=== PATIENT | female | born 1935 | race Caucasian/White ===

== ENCOUNTER 2016-09-19 08:53 | Emergency (ER) | payer MEDICARE, OTHER ==
[2016-09-19] MEDS ORDERED: Sodium Chloride 0.9% 1,000 ML IV ONE (09:04)
[2016-09-19 09:52] LABS: CHLORIDE,CL 107 mmol/L (98-107); SODIUM,NA 141 mmol/L (136-145)
[2016-09-19 12:15] VITALS: BP 137/109
--- NOTE | 2016-09-19 16:06 | ER ---
Date of Service: 09/19/2016 SUBJECTIVE: Munira presents to emergency room with complaints of syncope. The patient was at [facility] this morning when she experienced a syncopal episode. She states that she did feel lightheaded prior to this. She does have a history of syncopal episodes in the past and had a similar event happened to her while at [facility] in 2012. During this event, she was lowered to the few and did not strike her head. The patient did not experience any chest pain or shortness of breath prior to the event. The patient states that she has not recently been ill and has not been experiencing any fever or chills. EMS did respond to the scene and did give her a fluid bolus and on arrival to the ER, she was feeling much better. PAST MEDICAL HISTORY: 1. Hypertension. 2. History of syncope. 3. Atrial fibrillation. 4. Hypothyroidism. 5. Congestive heart failure. 6. GERD. 7. Anxiety. MEDICATIONS: 1. Clonazepam. 2. Coumadin. 3. Prilosec. 4. Mycostatin. 5. Metoprolol tartrate. 6. Prinivil. 7. Synthroid. 8. Levothyroxine. 9. Digoxin. 10.Extra-strength Tylenol. ALLERGIES: Celebrex, morphine, and naproxen. REVIEW OF SYSTEMS: General: No fever or chills. HEENT: No sore throat, rhinorrhea, or congestion. Respiratory: No shortness of breath. Cardiac: Denies any substernal chest pain. Please see history of present illness. She denies any palpitations. GI: Denies any nausea, vomiting, or diarrhea. No melena, hematochezia, or hematemesis. : Denies any dysuria. Musculoskeletal: No myalgias or arthralgias. Neurologic: Please see history of present illness. PHYSICAL EXAMINATION: General: This is an 81-year-old female patient, who is in no acute distress. Vital Signs: Please see nurse's notes. She was tachycardic with a heart rate in the 120s to 130s. Skin: Warm, pale, and dry. HEENT: Head is normocephalic, atraumatic. Eyes, PERRLA. Extraocular movements are intact. Ears, TMs are clear. Mouth, oral mucosa is moist. Lungs: Clear to auscultation. Heart: Regular rate and rhythm. Abdomen: Soft, nontender. There is no hepatosplenomegaly noted. There is no masses noted. Extremities: Without edema. Neurologic: The patient is alert, oriented, and answers all questions appropriately. Her speech is fluent. Her gait is within normal limits. She has 5/5 strength in both her upper and lower extremities. Patellar and brachioradialis reflexes are 2+. She is alert to time, date, and place. DIAGNOSTIC DATA: EKG was obtained showing atrial fibrillation at a rate in the low 100s. There was no evidence of any acute ST or T-wave changes. LABORATORY DATA: WBCs 3.1, hemoglobin is 11.2, platelets are 234. PT is 19.2, INR is 1.7. Sodium is 141, potassium is 3.8, chloride is 107, bicarb is 26, BUN is 14, creatinine is 0.9. GFR is 60, glucose is 105, calcium is 8.0, corrected calcium is 8.72. Total bilirubin is 0.4, AST is 21, ALT is 26, alkaline phosphatase is 62. CK is 40. Troponin is less than 0.017. Protein is 6.0, albumin is 3.1, TSH is 1.466. EMERGENCY ROOM COURSE: The patient was given a total of approximately 1200 mils of normal saline in the emergency room. Her heart rate decreased from the 120 range down into the 80s. She reported feeling markedly improved and stated that she was no longer feeling lightheaded or weak. She continued not to experience any chest discomfort and wished to be discharged. ASSESSMENT: Syncope secondary to dehydration. PLAN: The patient will be discharged. Go home and advised her to drink plenty of fluids and have a good meal. Return to the ER if she developed any chest pain, shortness of breath, abdominal pain, lightheadedness, or symptoms of syncope. All questions were answered. MWK: 09/19/2016 11:25:12 MODL: 09/19/2016 13:09:37 /[id number]
== END 2016-09-19 10:15 | disposition home or self-care (01) ==
LOC: VM.ED 08:53 → SUPCPDRO 08:53 → VM.ED 10:15
DX: R55 Syncope and collapse (principal); I48.91 Unspecified atrial fibrillation; E03.9 Hypothyroidism, unspecified; I11.0 Hypertensive heart disease with heart failure; I50.9 Heart failure, unspecified; K21.9 Gastro-esophageal reflux disease without esophagitis; F41.9 Anxiety disorder, unspecified; Z88.8 Allergy status to other drugs, medicaments and biological substances; Z88.5 Allergy status to narcotic agent
CPT/HCPCS: 36415; 71010; 80053; 82550; 84443; 84484; 85025; 85610; 93005; 96360; 99285; J7030; 99283-GF

== ENCOUNTER 2016-12-30 10:36 | Inpatient (IN) | payer MEDICARE, OTHER ==
[2016-12-30] MEDS ORDERED: Ketorolac 15 MG/ML SDV IVPUSH ONE (11:01)
[2016-12-30] MEDS ORDERED: Sodium Chloride 0.9% 1,000 ML IV ONE (11:15)
[2016-12-30 12:02] LABS: CHLORIDE,CL 107 mmol/L (98-107); SODIUM,NA 141 mmol/L (136-145)
--- NOTE | 2016-12-30 12:02 | EDM.PDOC ---
ED HPI GENERAL MEDICAL PROBLEM - General Chief Complaint: Syncope Stated Complaint: FALLS Time Seen by Provider: 12/30/16 10:54 Source of Information: Reports: Patient, Family History Limitations: Reports: No Limitations - History of Present Illness INITIAL COMMENTS - FREE TEXT/NARRATIVE: patient fell four times during the night, up to bathroom twice to urinate, dizzy , weak. Now complaining of pain in neck, central chest with movement and palpation and left foot with movement. Onset Date: 12/29/16 Onset Time: 23:00 Duration: Hour(s):, Getting Worse Location: Reports: Neck, Chest, Lower Extremity, Left Quality: Reports: Stabbing, Throbbing Severity: Moderate Improves with: Reports: Other (not moving eases symptoms) Worsens with: Reports: Movement Associated Symptoms: Reports: Chest Pain (with movement or palpation), Syncope, Weakness, Other (palpations). Denies: Cough, cough w sputum, Diaphoresis, Fever /Chills, Headaches, Nausea/Vomiting, Shortness of Breath Middle Chest Pain Score (Numeric/FACES): 3 Left Feet Pain Score (Numeric/FACES): 5 Left Posterior Neck Pain Score (Numeric/FACES): 8 - Related Data Allergies Allergy/AdvReac Type Severity Reaction Status Date / Time celecoxib [From Celebrex] Allergy Headache Verified 12/30/16 11:42 marijuana Allergy Confusion Verified 12/30/16 11:44 metoprolol Allergy Dizziness Verified 12/30/16 11:44 morphine Allergy Redness Verified 12/30/16 11:42 naproxen [From Naprosyn] Allergy Headache Verified 12/30/16 11:42 Home Meds: Home Meds Acetaminophen [Acetaminophen Extra Strength] 1,000 mg PO Q8HR PRN 11/30/13 [ History] clonazePAM [Klonopin] 1 mg PO BEDTIME 11/30/13 [History] Aspirin [Low Dose Aspirin EC] 81 mg PO DAILY 12/30/16 [History] Diltiazem [Cardizem CD] 120 mg PO DAILY 12/30/16 [History] Heparin Sodium,Porcine/PF [Heparin IV Flush 100 Units/ml] 500 units IV ASDIRECTED 12/30/16 [History] Levothyroxine 125 mcg PO ACBREAKFAST 12/30/16 [History] Lisinopril [Prinivil] 5 mg PO DAILY 12/30/16 [History] Multivitamin [Daily Multiple Vitamin] 1 tab PO DAILY 12/30/16 [History] Triamcinolone Acetonide [Triamcinolone Acetonide 0.1% Crm] 1 applic TOP DAILY PRN 12/30/16 [History] Warfarin [Coumadin] 2.5 mg PO ASDIRECTED 12/30/16 [History] Warfarin [Coumadin] 5 mg PO ASDIRECTED 12/30/16 [History] Past Medical History HEENT History: Reports: Impaired Vision Cardiovascular History: Reports: Afib, Hypertension, Other (See Below) Other Cardiovascular History: Takes Cardizem and Coumadin Endocrine/Metabolic History: Reports: Hypothyroidism Oncologic (Cancer) History: Reports: Non-Hodgkin's Lymphoma Social & Family History - Tobacco Use Smoking Status *Q: Never Smoker Second Hand Smoke Exposure: No - Alcohol Use Days Per Week of Alcohol Use: 0 - Recreational Drug Use Recreational Drug Use: No ED ROS GENERAL - Review of Systems Review Of Systems: See Below Constitutional: Reports: Weakness, Diaphoresis. Denies: Fever, Chills HEENT: Reports: Other (dizziness at times). Denies: Vertigo, Vision Change Respiratory: Reports: No Symptoms. Denies: Shortness of Breath, Wheezing, Pleuritic Chest Pain Cardiovascular: Reports: Chest Pain (only with movement and palpation), Other ( heart pounding, palpation at times) Endocrine: Reports: No Symptoms GI/Abdominal: Reports: No Symptoms. Denies: Abdominal Pain, Black Stool, Bloody Stool, Constipation, Diarrhea : Reports: Frequency. Denies: Dysuria, Flank Pain Musculoskeletal: Reports: Neck Pain (left sided neck pain), Foot Pain (left foot pain), Other (chest wall pain with movement and palpation) Skin: Reports: Bruising Neurological: Reports: Dizziness, Syncope (patient states woke up on the floor 4 times last night), Weakness (generalized). Denies: Confusion, Headache, Trouble Speaking Psychiatric: Reports: No Symptoms - Physical Exam Exam: See Below Exam Limited By: No Limitations General Appearance: Alert, WD/WN, No Apparent Distress, Other (initially pale and clammy which improved after got to ER) Eye Exam: Bilateral Eye: EOMI, PERRL Ears: Normal External Exam, Normal Canal, Hearing Grossly Normal, Normal TMs Nose: Normal Inspection, Normal Mucosa, No Blood Throat/Mouth: Normal Inspection, Normal Lips, Normal Teeth, Normal Gums, Normal Oropharynx, Normal Voice, No Airway Compromise, Other (right lower rear molar removed three weeks ago, has small hole that looks free of infection and appears to be healing well) Head Exam: Atraumatic, Normocephalic Neck: Normal Inspection, Limited Range of Motion, Tender Lateral (left sided paraspinous muscle tendernessw) Respiratory/Chest: No Respiratory Distress, Lungs Clear, No Accessory Muscle Use , Other (chest tender with palpation, movement and deep breath in mid sternal area, non painful at rest) Cardiovascular: Normal Peripheral Pulses, Regular Rate, Rhythm, No Edema, No Gallop, No JVD, No Murmur, No Rub GI/Abdominal: Normal Bowel Sounds, Soft, Non-Tender, No Organomegaly, No Distention, No Abnormal Bruit, No Mass, Pelvis Stable (Female) Exam: Deferred, Other (bruising noted left posterior perineal/ buttock area.) Rectal (Female) Exam: Deferred Neuro Exam (Abbreviated): Alert, Oriented, CN II-XII Intact, Normal Cognition, Normal Gait, Normal Reflexes, No Motor/Sensory Deficits Back Exam: Normal Inspection, Full Range of Motion. No: CVA Tenderness (L), CVA Tenderness (R) Extremities: Normal Inspection (except for pain and brusing top of left foot at the base of toes on dorsal surface), Normal Range of Motion, Non-Tender, No Pedal Edema, Normal Capillary Refill. No: Pedal Edema Psychiatric: Normal Affect (bruises on right shoulder, several small ones on lower legs and one in left perineal/buttocks area), Normal Mood Skin Exam: Warm, Dry, Intact, Ecchymosis (bruising on right shoulder, small bruises bilat lower legs and in left perineal/buttocks area), Other Course - Vital Signs Last Recorded V/S: Last Vital Signs Temp 36.6 C 12/30/16 14:19 Pulse 76 12/30/16 14:19 Resp 18 12/30/16 14:19 BP 113/71 12/30/16 14:19 Pulse Ox 99 12/30/16 14:19 - Orders/Labs/Meds Orders: Active Orders 24 hr Category Date Time Status EKG 12 Lead [EKG Documentation Completion] [RC] STAT Care 12/30/16 10:40 Ordered Insert Leong Catheter [Insert Urinary Catheter] [OM.PC] Care 12/30/16 10:50 Ordered Q24H Urinary Catheter Assessment [RC] 08,20 Care 12/30/16 12:09 Active Cervical Spine wo Cont [CT] Stat Exams 12/30/16 10:58 Taken Chest 1V Frontal [CR] Stat Exams 12/30/16 10:57 Taken Foot 2V Lt [CR] Stat Exams 12/30/16 11:00 Taken Head wo Cont [CT] Stat Exams 12/30/16 10:57 Taken Sodium Chloride 0.9% [Saline Flush] Med 12/30/16 10:54 Active 10 ml FLUSH ASDIRECTED PRN Saline Lock Insert [OM.PC] Routine Oth 12/30/16 10:54 Ordered Medication Orders Sodium Chloride (Saline Flush) 10 ml FLUSH ASDIRECTED PRN PRN Reason: Keep Vein Open Labs: Laboratory Tests 12/30/16 12/30/16 12/30/16 Range/Units 11:00 11:25 11:25 WBC 7.0 (4.0-10.0) x10^3/uL RBC 3.58 L (4.00-5.50) x10^6/uL Hgb 11.2 L (12.0-16.0) g/dL Hct 33.4 (33.0-47.0) % MCV 93.3 H (78.0-93.0) fL MCH 31.3 (26.0-32.0) pg MCHC 33.5 (32.0-36.0) g/dL RDW Coeff of Luz 12.9 (10.0-15.0) % Plt Count 251 (130-400) x10^3/uL Neut % (Auto) 86.5 H (50.0-80.0) % Lymph % (Auto) 7.1 L (25.0-50.0) % Waldo % (Auto) 5.6 (2.0-11.0) % Eos % (Auto) 0.4 (0.0-4.0) % Baso % (Auto) 0.4 (0.2-1.2) % PT (9.8-11.8) SEC INR (2.0-3.5) Sodium 141 (136-145) mmol/L Potassium 4.2 (3.5-5.1) mmol/L Chloride 107 (98-107) mmol/L Carbon Dioxide 28 (21-32) mmol/L BUN 14 (7-18) mg/dL Creatinine 1.0 (0.55-1.02) mg/dL Est Cr Clr Drug Dosing 33.58 mL/min Estimated GFR (MDRD) 53 Glucose 138 H (74-106) mg/dL Calcium 8.4 L (8.5-10.1) mg/dL Corrected Calcium 9.12 (8.5-10.1) mg/dL Total Bilirubin 0.4 (0.2-1.0) mg/dL AST 26 (15-37) U/L ALT 26 (14-59) U/L Alkaline Phosphatase 56 (46-116) U/L Creatine Kinase 217 H* (26-192) U/L Creatine Kinase Index 11.0 H (0.0-4.0) % CK-MB (CK-2) 23.8 H (0.0-3.6) ng/mL Troponin I < 0.017 (<=0.056) ng/mL Total Protein 5.8 L (6.4-8.2) g/dL Albumin 3.1 L (3.4-5.0) g/dL Globulin 2.7 Albumin/Globulin Ratio 1.15 Urine Color Yellow (YELLOW) Urine Appearance Clear (CLEAR) Urine pH 5.5 (5.0-8.0) Ur Specific [place] 1.015 Urine Protein Trace H (NEGATIVE) mg/dL Urine Glucose (UA) Negative (NEGATIVE) mg/dL Urine Ketones Negative (NEGATIVE) mg/dL Urine Occult Blood Small H (NEGATIVE) Urine Nitrite Negative (NEGATIVE) Urine Bilirubin Negative (NEGATIVE) Urine Urobilinogen 0.2 (0.2) EU/dL Ur Leukocyte Esterase Negative (NEGATIVE) Urine RBC 5-10 H (NOT SEEN) /HPF Urine WBC 0-5 (NOT SEEN) /HPF Ur Squamous Epith Cells Few H (NEGATIVE) /HPF Urine Bacteria Few H (NEGATIVE) /HPF Hyaline Casts Few H (NEGATIVE) /HPF Urine Mucus Few H (NEGATIVE) /LPF 12/30/16 Range/Units 11:25 WBC (4.0-10.0) x10^3/uL RBC (4.00-5.50) x10^6/uL Hgb (12.0-16.0) g/dL Hct (33.0-47.0) % MCV (78.0-93.0) fL MCH (26.0-32.0) pg MCHC (32.0-36.0) g/dL RDW Coeff of Luz (10.0-15.0) % Plt Count (130-400) x10^3/uL Neut % (Auto) (50.0-80.0) % Lymph % (Auto) (25.0-50.0) % Waldo % (Auto) (2.0-11.0) % Eos % (Auto) (0.0-4.0) % Baso % (Auto) (0.2-1.2) % PT 31.4 H D (9.8-11.8) SEC INR 3.0 (2.0-3.5) Sodium (136-145) mmol/L Potassium (3.5-5.1) mmol/L Chloride (98-107) mmol/L Carbon Dioxide (21-32) mmol/L BUN (7-18) mg/dL Creatinine (0.55-1.02) mg/dL Est Cr Clr Drug Dosing mL/min Estimated GFR (MDRD) Glucose (74-106) mg/dL Calcium (8.5-10.1) mg/dL Corrected Calcium (8.5-10.1) mg/dL Total Bilirubin (0.2-1.0) mg/dL AST (15-37) U/L ALT (14-59) U/L Alkaline Phosphatase (46-116) U/L Creatine Kinase (26-192) U/L Creatine Kinase Index (0.0-4.0) % CK-MB (CK-2) (0.0-3.6) ng/mL Troponin I (<=0.056) ng/mL Total Protein (6.4-8.2) g/dL Albumin (3.4-5.0) g/dL Globulin Albumin/Globulin Ratio Urine Color (YELLOW) Urine Appearance (CLEAR) Urine pH (5.0-8.0) Ur Specific [place] Urine Protein (NEGATIVE) mg/dL Urine Glucose (UA) (NEGATIVE) mg/dL Urine Ketones (NEGATIVE) mg/dL Urine Occult Blood (NEGATIVE) Urine Nitrite (NEGATIVE) Urine Bilirubin (NEGATIVE) Urine Urobilinogen (0.2) EU/dL Ur Leukocyte Esterase (NEGATIVE) Urine RBC (NOT SEEN) /HPF Urine WBC (NOT SEEN) /HPF Ur Squamous Epith Cells (NEGATIVE) /HPF Urine Bacteria (NEGATIVE) /HPF Hyaline Casts (NEGATIVE) /HPF Urine Mucus (NEGATIVE) /LPF Meds: Medications Generic Name Dose Route Start Last Admin Trade Name Freq PRN Reason Stop Dose Admin Sodium Chloride 10 ml 12/30/16 10:54 Saline Flush FLUSH ASDIRECTED PRN Keep Vein Open Discontinued Medications Generic Name Dose Route Start Last Admin Trade Name Freq PRN Reason Stop Dose Admin Sodium Chloride 1,000 mls @ 999 mls/hr 12/30/16 11:15 12/30/16 11:05 Normal Saline IV 12/30/16 12:15 999 mls/hr ONETIME ONE Administration Ketorolac Tromethamine 15 mg 12/30/16 11:01 12/30/16 11:10 Toradol IVPUSH 12/30/16 11:02 15 mg ONETIME ONE Administration - Radiology Interpretation Free Text/Narrative:: Xray left foot showed fractures of left second through 5 metatarsals. CXR showed no acute process. CT Results Date: 12/30/16 (CT of head showed no acute intracranial process. CT of neck showed fracture involving superior endplate, unsure if old or new. Radiologist thought maybe old. However pain at the site is new since her fall.) CT Results Time: 13:00 - Re-Assessments/Exams Free Text/Narrative Re-Assessment/Exam: 12/30/16 15:[address] Saldaña. We agree that admission is warranted. Family and patient are agreeable to this plan. Departure - Departure Time of Disposition: 14:20 Disposition: Admitted As Inpatient 64 Condition: Good Clinical Impression: PAF (paroxysmal atrial fibrillation) Syncope Qualifiers: Syncope type: unspecified Qualified Code(s): R55 - Syncope and collapse Vertebral fracture, closed Qualifiers: Encounter type: initial encounter Fracture of vertebra location: thoracic Thoracic vertebra fracture level: T1 Fracture morphology: unspecified fracture morphology Qualified Code(s): S22.019A - Unspecified fracture of first thoracic vertebra, initial encounter for closed fracture Fracture of foot Qualifiers: Encounter type: initial encounter Fracture type: closed Laterality: left Qualified Code(s): S92.902A - Unspecified fracture of left foot, initial encounter for closed fracture - Discharge Information - My Orders Last 24 Hours: My Active Orders 12/30/16 10:40 EKG 12 Lead [EKG Documentation Completion] [RC] STAT 12/30/16 10:50 Insert Leong Catheter [Insert Urinary Catheter] [OM.PC] Q24H 12/30/16 10:54 Sodium Chloride 0.9% [Saline Flush] 10 ml FLUSH ASDIRECTED PRN Saline Lock Insert [OM.PC] Routine 12/30/16 10:57 Chest 1V Frontal [CR] Stat Head wo Cont [CT] Stat 12/30/16 10:58 Cervical Spine wo Cont [CT] Stat 12/30/16 11:00 Foot 2V Lt [CR] Stat 12/30/16 12:09 Urinary Catheter Assessment [RC] 08,20 - Assessment/Plan Last 24 Hours: My Active Orders 12/30/16 10:40 EKG 12 Lead [EKG Documentation Completion] [RC] STAT 12/30/16 10:50 Insert Leong Catheter [Insert Urinary Catheter] [OM.PC] Q24H 12/30/16 10:54 Sodium Chloride 0.9% [Saline Flush] 10 ml FLUSH ASDIRECTED PRN Saline Lock Insert [OM.PC] Routine 12/30/16 10:57 Chest 1V Frontal [CR] Stat Head wo Cont [CT] Stat 12/30/16 10:58 Cervical Spine wo Cont [CT] Stat 12/30/16 11:00 Foot 2V Lt [CR] Stat 12/30/16 12:09 Urinary Catheter Assessment [RC] 08,20
[2016-12-30] MEDS: Sodium Chloride 0.9% 1,000 ML IV SCH (17:30)
[2016-12-30] MEDS: Melatonin 3 MG Tab PO SCH ×2 (17:56→21:43)
[2016-12-30] MEDS: Diltiazem 120 MG Cap.CD PO SCH (18:11)
[2016-12-30] MEDS: Lisinopril 5 MG Tab PO SCH (18:11)
[2016-12-30] MEDS: Aspirin 81 MG Tab.EC PO SCH (18:11)
[2016-12-30] MEDS: Acetaminophen 500 MG Tab PO PRN (18:12)
[2016-12-30] MEDS ORDERED: Warfarin 5 MG Tab PO SCH (20:00)
--- NOTE | 2016-12-30 21:22 | HP ---
REASON FOR ADMISSION: Syncopal episodes. HISTORY OF PRESENT ILLNESS: This is an 81-year-old white female, brought into the emergency room today because of multiple episodes of passing out and falling last night and early this morning. She had had about 4 episodes where she had gotten up to go to the bathroom, fell in the bathroom, and fell on the way back to the bedroom. She felt like she had some funny feeling in her head at this time. She did not recall any chest pain or palpitations at that time. She gets up about 2 to 5 times a night to urinate. She has done this for the past 3 years following her Whipple procedure surgery. She denied any spinning sensation. She has had no recent illness. No fever or chills. No cough. She does feel cold. She has had no nausea or vomiting. Occasional diarrhea. She had been eating okay, taking plenty of fluids according to her report. PAST MEDICAL HISTORY: 1. Pancreatic cancer, diagnosed about 3 years ago. She underwent a Whipple procedure on 11/02/2013. She has had chemotherapy and radiation therapy to the lung for this also followed by Dr. Hussein at [facility]. 2. She had a recent molar tooth extracted about 3 weeks ago. 3. She has had a history of syncope over the past year or so. She has passed out a couple 2 to 3 times at [facility], gets dizzy. Additional past medical history on review from my chart, which they shared with me. 1. Paroxysmal atrial fibrillation. 2. Paroxysmal SVT. 3. Diastolic dysfunction. 4. Vertigo. 5. Hypertension. MEDICATIONS: 1. Clonazepam 1 mg at bedtime since her Whipple procedure in 2013. 2. Coumadin as directed because of her paroxysmal atrial fibrillation. 3. Triamcinolone cream b.i.d. p.r.n. 4. Multivitamin daily. 5. Lisinopril 5 mg daily. 6. Levothyroxine 125 mcg daily. 7. Heparin flush for her port. 8. Diltiazem 120 mg daily. 9. Aspirin 81 mg daily. 10.Tylenol 1000 mg q.8 hours p.r.n. ALLERGIES AND SENSITIVITIES: Celebrex, marijuana, metoprolol, morphine, and naproxen. SOCIAL HISTORY: She currently lives alone in the [address]. Has been there about 2 months. REVIEW OF SYSTEMS: Unremarkable except as already noted in the HPI. OBJECTIVE: General: She is alert. Vital Signs: She is afebrile, pulse is 71 and regular, blood pressure is 135/59, respirations are 20, and O2 saturations are 98% on room air. Orthostatic blood pressures were abnormal, sitting it was 143/69, standing it dropped to 118/70. HEENT: Pupils unremarkable. TMs negative. Throat clear. Neck: Supple. No adenopathy noted. Heart: Regular rate and rhythm. No murmur noted. Lungs: Clear to auscultation. She has a port in the right upper chest. Abdomen: Soft. Prior surgical scars noted. No masses palpable. No hepatosplenomegaly noted. Extremities: Warm and dry. No edema. She moves all 4 extremities. Sensation is intact. She has some tenderness at the dorsal aspect of the left foot. Also some tenderness in the mid to upper thorax. LABORATORY DATA: White count is 7 and hemoglobin 11.2. INR 3. Electrolytes are normal with a creatinine of 1.0. Glucose is 138. LFTs are normal. CK is elevated at 217. Troponin is negative. Albumin 3.1. Urinalysis also unremarkable. IMAGING: X-rays of the left foot shows fractures at the distal aspects of the third, fourth, and fifth metatarsals. Chest x-ray was unremarkable. Head CT was unremarkable by report. CT of the cervical spine has apparent T1 compression fracture, undetermined age. EKG shows normal sinus rhythm, no acute changes, rate of 70. ASSESSMENT: 1. Multiple syncopal episodes, etiology undetermined. 2. History of paroxysmal atrial fibrillation. 3. History of paroxysmal supraventricular tachycardia. 4. History of pancreatic cancer, status post Whipple procedure. 5. Suspect dehydration based on the orthostatic blood pressure changes. 6. Fracture of the second through fifth metatarsals of the left foot. 7. Evidence of compression fracture, T1, age undetermined. PLAN: 1. The patient will be admitted to acute care status for monitoring of her condition. Placed on a galley boy. We will give her some IV fluids. Repeat labs in the morning. Discontinue her Klonopin in case that is contributing to her syncope, replace with melatonin. 2. Physical Therapy consult for evaluation and treatment on Sunday. 3. Social Service consult on Sunday also to discuss if she is able to live alone. The patient may require a stay in [facility] following her acute care stay for rehabilitation purposes. 4. She requests a code 3 DNR/DNI status. The patient's local provider is [facility]. She will need to have a primary physician provider on Sunday. Family is considering and will let me know. FM: 12/30/2016 17:36:01 MODL: 12/30/2016 20:09:40 /[id number]
[2016-12-31] MEDS: Acetaminophen 500 MG Tab PO PRN ×2 (01:15→22:32)
[2016-12-31] MEDS: Sodium Chloride 0.9% 1,000 ML IV SCH (01:16)
[2016-12-31] MEDS: Ibuprofen 200 MG Tab PO PRN ×3 (03:49→19:33)
[2016-12-31] MEDS: Levothyroxine 125 MCG Tab PO SCH (06:06)
[2016-12-31] MEDS: Lisinopril 5 MG Tab PO SCH (07:49)
[2016-12-31] MEDS: Aspirin 81 MG Tab.EC PO SCH (07:49)
[2016-12-31] MEDS: Diltiazem 120 MG Cap.CD PO SCH (07:49)
[2016-12-31] MEDS: Multivitamins with Iron/Calcium/Folic Acid/Minerals Tab PO SCH (07:49)
[2016-12-31 08:37] LABS: CHLORIDE,CL 109 mmol/L (98-107); SODIUM,NA 140 mmol/L (136-145)
--- NOTE | 2016-12-31 13:37 | PN ---
Progress Note for JENNI CASTANON Date: 12/31/2016 Room #: VM.202 SUBJECTIVE: An 81-year-old white female, admitted yesterday with multiple syncopal episodes of undetermined etiology. She sustained metatarsal fractures on the left foot and potential new T1 compression fracture. She is also noted to be mildly dehydrated with positive orthostatic blood pressure changes. She has done well overnight, has not been dizzy or lightheaded. She does complains of chest discomfort that seems to be chest wall discomfort and she is tender in the chest wall and subsequent to back. Pain was improved with ibuprofen given overnight. Her sleep was fair. She tolerates the melatonin. I discontinued the Klonopin due to risks of dizziness from this and possibly contributing to her syncopal episodes. OBJECTIVE: General: She is alert. Vital Signs: She is afebrile, blood pressure is 128/58, pulse 54, O2 sats 98% on room air, respirations are 16. Heart: Regular rate and rhythm. Lungs: Clear to auscultation. Abdomen: Benign. Extremities: Warm and dry. No edema. Telemetry was pretty much stable now except that she did have a short run of bigeminy without symptoms. LABORATORIES: Today, white count 4.1, hemoglobin is 9.4, decreased from 11.2, possibly due to dilution. INR is up to 3.8. Electrolytes are normal. Creatinine 0.8. CK is normal at 140 this morning. Troponin is negative. ASSESSMENT: 1. Multiple syncopal episodes. 2. Short run of bigeminy. 3. History of paroxysmal atrial fibrillation. 4. History of paroxysmal supraventricular tachycardia. 5. Mild dehydration-resolved. 6. Fracture of 3rd, 4th, and 5th metatarsals of the left foot. PLAN: We will continue to monitor the patient's status. Continue cardiac monitoring. Saline lock her IV. She is scheduled for physical therapy evaluation tomorrow. Social Service evaluation tomorrow. She is requesting Dr. Carissa Girard to be her provider while she is in the hospital. FM: 12/31/2016 12:52:28 MODL: 12/31/2016 13:31:40 /[id number]
[2016-12-31] MEDS: Melatonin 3 MG Tab PO SCH (19:33)
[2017-01-01] MEDS: Ibuprofen 200 MG Tab PO PRN ×3 (02:25→20:12)
[2017-01-01] MEDS: Levothyroxine 125 MCG Tab PO SCH (06:06)
[2017-01-01] MEDS: Multivitamins with Iron/Calcium/Folic Acid/Minerals Tab PO SCH (07:34)
[2017-01-01] MEDS: Aspirin 81 MG Tab.EC PO SCH (07:35)
[2017-01-01] MEDS: Diltiazem 120 MG Cap.CD PO SCH (07:35)
[2017-01-01] MEDS: Lisinopril 5 MG Tab PO SCH (07:35)
[2017-01-01] MEDS: Sodium Chloride 0.9% 10 ML Syringe FLUSH PRN ×2 (07:36→20:21)
[2017-01-01 08:30] LABS: CHLORIDE,CL 109 mmol/L (98-107); SODIUM,NA 143 mmol/L (136-145)
--- NOTE | 2017-01-01 08:41 | PCM.PN ---
- General Info Date of Service: 01/01/17 Subjective Update: Patient has not been sleeping well secondary to pain in her chest, back, and neck. She denies any worsening of the pain and has had all of these since she first got admitted. Her foot does not bother her at rest but she has significant pain whenever she tries to bear weight. - Review of Systems General: Reports: No Symptoms HEENT: Reports: No Symptoms Pulmonary: Reports: No Symptoms Cardiovascular: Reports: Chest Pain. Denies: Edema, Lightheadedness Gastrointestinal: Reports: No Symptoms Genitourinary: Reports: No Symptoms Musculoskeletal: Reports: Neck Pain, Back Pain, Foot Pain Skin: Reports: No Symptoms Neurological: Reports: No Symptoms - Patient Data Vitals - Most Recent: Last Vital Signs Temp 36.6 C 01/01/17 06:00 Pulse 62 01/01/17 07:35 Resp 18 01/01/17 06:00 BP 156/56 H 01/01/17 07:35 Pulse Ox 99 01/01/17 06:00 Weight - Most Recent: 48.897 kg I&O - Last 24 Hours: Intake & Output 12/31/16 01/01/17 01/01/17 22:59 06:59 14:59 Intake Total 350 250 200 Output Total 800 3250 Balance -450 -3000 200 Lab Results Last 24 Hours: Laboratory Results - last 24 hr 12/31/16 01/01/17 01/01/17 Range/Units 07:45 06:28 06:28 WBC 4.8 (4.0-10.0) x10^3/uL RBC 3.06 L (4.00-5.50) x10^6/uL Hgb 9.8 L (12.0-16.0) g/dL Hct 28.4 L (33.0-47.0) % MCV 92.8 (78.0-93.0) fL MCH 32.0 (26.0-32.0) pg MCHC 34.5 (32.0-36.0) g/dL RDW Coeff of Luz 12.6 (10.0-15.0) % Plt Count 218 (130-400) x10^3/uL Neut % (Auto) 76.6 (50.0-80.0) % Lymph % (Auto) 12.2 L (25.0-50.0) % [place] % (Auto) 9.3 (2.0-11.0) % Eos % (Auto) 1.7 (0.0-4.0) % Baso % (Auto) 0.2 (0.2-1.2) % PT 29.2 H (9.8-11.8) SEC INR 2.8 (2.0-3.5) Sodium 140 (136-145) mmol/L Potassium 4.0 (3.5-5.1) mmol/L Chloride 109 H (98-107) mmol/L Carbon Dioxide 23 (21-32) mmol/L BUN 13 (7-18) mg/dL Creatinine 0.8 (0.55-1.02) mg/dL Est Cr Clr Drug Dosing 41.13 mL/min Estimated GFR (MDRD) > 60 Glucose 94 (74-106) mg/dL Calcium 7.9 L (8.5-10.1) mg/dL Creatine Kinase 140 (26-192) U/L Creatine Kinase Index 4.1 H (0.0-4.0) % CK-MB (CK-2) 5.8 H (0.0-3.6) ng/mL Troponin I < 0.017 (<=0.056) ng/mL Med Orders - Current: Current Medications Acetaminophen (Tylenol Extra Strength) 1,000 mg PO Q8HR PRN PRN Reason: Pain Last Admin: 12/31/16 22:32 Dose: 1,000 mg Aspirin (Halfprin) 81 mg PO DAILY [facility] Last Admin: 01/01/17 07:35 Dose: 81 mg Diltiazem HCl (Cardizem Cd) 120 mg PO DAILY [facility] Last Admin: 01/01/17 07:35 Dose: 120 mg Heparin Sodium (Porcine) (Heparin Lock Flush 100 Units/Ml) 500 units IVPUSH Q30D [facility] Sodium Chloride (Normal Saline) 1,000 mls @ 125 mls/hr IV ASDIRECTED [facility] Last Admin: 12/31/16 01:16 Dose: 125 mls/hr Ibuprofen (Motrin) 600 mg PO TID PRN PRN Reason: Pain/Fever Last Admin: 01/01/17 02:25 Dose: 600 mg Levothyroxine Sodium (Levothyroxine) 125 mcg PO ACBREAKFAST [facility] Last Admin: 01/01/17 06:06 Dose: 125 mcg Lisinopril (Prinivil) 5 mg PO DAILY [facility] Last Admin: 01/01/17 07:35 Dose: 5 mg Melatonin (Melatonin) 6 mg PO BEDTIME [facility] Last Admin: 12/31/16 19:33 Dose: 6 mg Multivitamins/Minerals (Thera M Plus) 1 tab PO DAILY [facility] Last Admin: 01/01/17 07:34 Dose: 1 tab Sodium Chloride (Saline Flush) 10 ml FLUSH ASDIRECTED PRN PRN Reason: Keep Vein Open Last Admin: 01/01/17 07:36 Dose: 10 ml Warfarin Sodium (Coumadin) 2.5 mg PO [email or web address] [facility] Last Admin: 12/30/16 21:41 Dose: 2.5 mg Warfarin Sodium (Coumadin) 5 mg PO [email or web address] [facility] Discontinued Medications Sodium Chloride (Normal Saline) 1,000 mls @ 999 mls/hr IV ONETIME ONE Stop: 12/30/16 12:15 Last Admin: 12/30/16 11:05 Dose: 999 mls/hr Ketorolac Tromethamine (Toradol) 15 mg IVPUSH ONETIME ONE Stop: 12/30/16 11:02 Last Admin: 12/30/16 11:10 Dose: 15 mg - Exam General: Alert, Oriented, Cooperative, No Acute Distress HEENT: Pupils Equal, Pupils Reactive, Mucous Membr. Moist/[place] Neck: Supple, Trachea Midline, No Thyromegaly. No: Lymphadenopathy Lungs: Clear to Auscultation, Normal Respiratory Effort Cardiovascular: Regular Rate, Regular Rhythm GI/Abdominal Exam: Normal Bowel Sounds, Soft, Non-Tender, No Organomegaly, No Distention, No Mass Extremities: Normal Inspection, No Pedal Edema, Normal Capillary Refill, Other ( tenderness to palpation over the proximal metatarsals) Skin: Warm, Dry, Intact - Problem List & Annotations (1) Syncope SNOMED Code(s): 328539535 Code(s): R55 - SYNCOPE AND COLLAPSE Status: Acute Current Visit: Yes Qualifiers: Syncope type: unspecified Qualified Code(s): R55 - Syncope and collapse Annotation/Comment:: - Etiology for syncope remains unclear. Presumed to be episode of either paroxysmal atrial fibrillation or SVT; nothing has been captured on the monitor. - No significant findings on telemetry; troponin negative x 2; other labs overall good; CT head negative. - Hgb did drop 2 points over the first day of admission but is stable now today. - Patient had an Echo about 1 year ago that was essentially unremarkable. - May need consult with cardiology as an outpatient but no further work-up is indicated inpatient. (2) PAF (paroxysmal atrial fibrillation) SNOMED Code(s): 711365549 Code(s): I48.0 - PAROXYSMAL ATRIAL FIBRILLATION Status: Chronic Current Visit: Yes Annotation/Comment:: - Rates have been controlled. - INR within range today. - Diltiazem and warfarin per home dosing. (3) Paroxysmal supraventricular tachycardia SNOMED Code(s): 27531676 Code(s): I47.1 - SUPRAVENTRICULAR TACHYCARDIA Status: Chronic Current Visit: Yes Annotation/Comment:: - None during admission. - Patient will remain on telemetry until tomorrow. (4) Anemia SNOMED Code(s): 097084997 Code(s): D64.9 - ANEMIA, UNSPECIFIED Status: Acute Current Visit: Yes Qualifiers: Anemia type: unspecified type Qualified Code(s): D64.9 - Anemia, unspecified Annotation/Comment:: - Hgb is usually normal and was down on admission with further decrease. Stable today. - Will have nursing do an occult blood on her next stool. - Otherwise, will monitor daily and do iron studies tomorrow as well. - Next steps depend on above results. (5) Hypertension SNOMED Code(s): 19657364 Code(s): I10 - ESSENTIAL (PRIMARY) HYPERTENSION Status: Chronic Current Visit: Yes Qualifiers: Hypertension type: essential hypertension Qualified Code(s): I10 - Essential (primary) hypertension Annotation/Comment:: - BP borderline. - No changes to medications at this time. - Will continue to monitor and adjust if persistently >150 systolic. (6) Fracture of foot SNOMED Code(s): 41627863 Code(s): S92.909A - UNSP FRACTURE OF UNSP FOOT, INIT ENCNTR FOR CLOSED FRACTURE Status: Acute Current Visit: Yes Qualifiers: Encounter type: initial encounter Fracture type: closed Laterality: left Qualified Code(s): S92.902A - Unspecified fracture of left foot, initial encounter for closed fracture Annotation/Comment:: - PT to get appropriate stabilizing footwear (post-op shoe vs. CAM boot). - Continue tylenol for pain. - Patient is WBAT. (7) Vertebral fracture, closed Status: Acute Current Visit: Yes Qualifiers: Encounter type: initial encounter Fracture of vertebra location: thoracic Thoracic vertebra fracture level: T1 Fracture morphology: unspecified fracture morphology Qualified Code(s): S22.019A - Unspecified fracture of first thoracic vertebra, initial encounter for closed fracture Annotation/Comment:: - Given she has pain at the site of the visualized compression fracture, would consider this acute rather than chronic. - This is a stable fracture. - Problem List Review Problem List Initiated/Reviewed/Updated: Yes - My Orders Last 24 Hours: My Active Orders 01/01/17 06:28 BASIC METABOLIC PANEL,BMP [CHEM] Routine - Assessment Assessment:: 81 yo female admitted with injuries from a fall caused by a syncopal episode. She has multiple aches and pains related to the fall but these are stable. No new symptoms and no syncopal events since admission. - Plan Plan:: See details under problems above. PT to evaluate the patient today. Anticipate she will require swing bed cares before returning home but we will await their assessment. She will remain on acute status today. She does not require VTE prophylaxis as she is therapeutically anticoagulated on warfarin. She is DNR/ DNI per discussions on admission. Will restart her clonazepam at lower doses as she will likely need to be tapered off of this given buttermaker use. Anticipate she will be medically ready to transition to swing bed tomorrow if PT is going to pick her up.
[2017-01-01] MEDS: Acetaminophen 500 MG Tab PO PRN (18:24)
[2017-01-01] MEDS ORDERED: ClonazePAM 0.5 MG Tab PO SCH (20:00)
[2017-01-01] MEDS ORDERED: Warfarin 5 MG Tab PO SCH (20:00)
[2017-01-01] MEDS: Melatonin 3 MG Tab PO SCH (20:14)
[2017-01-02] MEDS: Acetaminophen 500 MG Tab PO PRN (03:18)
[2017-01-02] MEDS: Levothyroxine 125 MCG Tab PO SCH (06:28)
[2017-01-02] MEDS: Aspirin 81 MG Tab.EC PO SCH (07:28)
[2017-01-02] MEDS: Lisinopril 5 MG Tab PO SCH (07:28)
[2017-01-02] MEDS: Diltiazem 120 MG Cap.CD PO SCH (07:28)
[2017-01-02] MEDS: Multivitamins with Iron/Calcium/Folic Acid/Minerals Tab PO SCH (07:28)
[2017-01-02] MEDS: Sodium Chloride 0.9% 10 ML Syringe FLUSH PRN (07:36)
--- NOTE | 2017-01-02 08:48 | PCM.DCSUM1 ---
Discharge Summary - Hospital Course Brief History: Mrs. Lo is an 81 yo female admitted following multiple syncopal events occurring within a 24 hour period. She did sustain fractures of her left 3rd-5th metatarsals during one of the falls. - Discharge Data Discharge Date: 01/02/17 Discharge Disposition: Home, [facility] 06 Condition: Good - Discharge Diagnosis/Problem(s) (1) Syncope SNOMED Code(s): 349689602 ICD Code: R55 - SYNCOPE AND COLLAPSE Status: Acute Current Visit: Yes Problem Details: As above, patient was admitted following repeated syncopal events. Labs have been unremarkable apart from her hemoglobin being lower than usual but stable. EKG and telemetry were essentially unrevealing. She did have 1 episode of bigeminy but was asymptomatic with that. Her last Echo was done around 1 year ago and basically unremarkable. Therefore, the etiology for her syncope remains unclear but is presumed to be episodes of either paroxysmal atrial fibrillation or SVT. 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 Qualifiers: Syncope type: unspecified Qualified Code(s): R55 - Syncope and collapse (2) PAF (paroxysmal atrial fibrillation) SNOMED Code(s): 793732713 ICD Code: I48.0 - PAROXYSMAL ATRIAL FIBRILLATION Status: Chronic Current Visit: Yes Problem Details: Rates have been controlled. INR at goal yesterday. Result will be called to [facility]. Her diltiazem and warfarin were continued per home dosing. (3) Paroxysmal supraventricular tachycardia SNOMED Code(s): 33054819 ICD Code: I47.1 - SUPRAVENTRICULAR TACHYCARDIA Status: Chronic Current Visit: Yes Problem Details: She had no episodes of this captured during her admission. (4) Anemia SNOMED Code(s): 670136019 ICD Code: D64.9 - ANEMIA, UNSPECIFIED Status: Acute Current Visit: Yes Problem Details: Hemoglobin is usually normal and was down on admission with further decrease the following day. Recheck yesterday was stable. Patient never had a BM to do the occult blood on. Since it has stabilized, will defer further work-up to the outpatient setting. Qualifiers: Anemia type: unspecified type Qualified Code(s): D64.9 - Anemia, unspecified (5) Hypertension SNOMED Code(s): 63131356 ICD Code: I10 - ESSENTIAL (PRIMARY) HYPERTENSION Status: Chronic Current Visit: Yes Problem Details: BP has been borderline elevated during her hospitalization but is better today after she got some sleep last night. No changes were made to her medications. Qualifiers: Hypertension type: essential hypertension Qualified Code(s): I10 - Essential (primary) hypertension (6) Fracture of foot SNOMED Code(s): 19979723 ICD Code: S92.909A - UNSP FRACTURE OF UNSP FOOT, INIT ENCNTR FOR CLOSED FRACTURE Status: Acute Current Visit: Yes Problem Details: Physical therapy was able to work with her to get a post-op shoe, which is working well for her. Her pain is now controlled with tylenol and she has been able to weight bear as tolerated. Qualifiers: Encounter type: initial encounter Fracture type: closed Laterality: left Qualified Code(s): S92.902A - Unspecified fracture of left foot, initial encounter for closed fracture (7) Vertebral fracture, closed Status: Acute Current Visit: Yes Problem Details: Given she has pain at the site of the visualized compression fracture, would consider this acute rather than chronic. This is a stable fracture and does not require further specific cares. Qualifiers: Encounter type: initial encounter Fracture of vertebra location: thoracic Thoracic vertebra fracture level: T1 Fracture morphology: unspecified fracture morphology Qualified Code(s): S22.019A - Unspecified fracture of first thoracic vertebra, initial encounter for closed fracture - Patient Summary/Data Operative Procedure(s) Performed: none Complications: none Consults: Consultations 12/30/16 17:14 PT Evaluation and Treatment [CONS] Routine 12/30/16 17:15 Consult to Laundry Or Dry Cleaners Counter Clerk [CONS] Routine Labs Pending at D/C: none Recommended Follow-up Testing/Procedures: further work-up of her anemia Planned Operative Procedure(s) after DC: none Hospital Course: See details as above. The patient's syncope was worked up without identification of an obvious cause. PT was able to see her yesterday and felt she could go home with home health. She is advised not to drive herself until she has been episode free for 3 months, sooner if ok'd by cardiology. Otherwise , her hospitalization was uncomplicated. The only medication change made was to decrease her clonazepam to 0.5 mg. HOME HEALTH CERTIFICATION: Patient was seen [id number] for the reasons pertaining to the need for home health (syncope, left metatarsal fractures) on 01/02/17. She is homebound as she needs the assistance of a walker and another individual to leave the home. She will require PT and OT for strengthening and ADL's and detention for medication instruction and vital sign monitoring. I will follow her home health plan of care. - Patient Instructions Diet: Usual Diet as Tolerated Activity: As Tolerated Driving: Do Not Drive Showering/Bathing: May Shower - Discharge Plan Home Medications: Home Meds Acetaminophen [Acetaminophen Extra Strength] 1,000 mg PO Q8HR PRN 11/30/13 [ History] Aspirin [Low Dose Aspirin EC] 81 mg PO DAILY 12/30/16 [History] Diltiazem [Cardizem CD] 120 mg PO DAILY 12/30/16 [History] Heparin Sodium,Porcine/PF [Heparin IV Flush 100 Units/ml] 500 units IV ASDIRECTED 12/30/16 [History] Levothyroxine 125 mcg PO ACBREAKFAST 12/30/16 [History] Lisinopril [Prinivil] 5 mg PO DAILY 12/30/16 [History] Multivitamin [Daily Multiple Vitamin] 1 tab PO DAILY 12/30/16 [History] Triamcinolone Acetonide [Triamcinolone Acetonide 0.1% Crm] 1 applic TOP BID PRN 12/30/16 [History] Warfarin [Coumadin] 2.5 mg PO ASDIRECTED 12/30/16 [History] Warfarin [Coumadin] 5 mg PO ASDIRECTED 12/30/16 [History] ClonazePAM [KlonoPIN] 0.5 mg PO BEDTIME tablet 01/02/17 [Rx] Forms: ED Department Discharge Referrals: Jigna Helm PA-C [Primary Care Provider] - - Discharge Summary/Plan Comment DC Time >30 min.: No - General Info Date of Service: 01/02/17 Subjective Update: Doing much better today. Slept well last night. Pain is doing much better this morning as well. No new complaints. - Review of Systems General: Reports: No Symptoms HEENT: Reports: No Symptoms Pulmonary: Reports: No Symptoms Cardiovascular: Reports: No Symptoms Gastrointestinal: Reports: No Symptoms Genitourinary: Reports: No Symptoms Musculoskeletal: Reports: No Symptoms Skin: Reports: No Symptoms - Patient Data Vitals - Most Recent: Last Vital Signs Temp 36.5 C 01/02/17 05:57 Pulse 54 L 01/02/17 07:28 Resp 16 01/02/17 05:57 BP 147/61 H 01/02/17 07:28 Pulse Ox 97 01/02/17 05:57 Weight - Most Recent: 48.897 kg I&O - Last 24 hours: Intake & Output 01/01/17 01/02/17 01/02/17 22:59 06:59 14:59 Intake Total 940 300 Output Total 350 1250 300 Balance 590 -1250 0 Med Orders - Current: Current Medications Acetaminophen (Tylenol Extra Strength) 1,000 mg PO Q8HR PRN PRN Reason: Pain Last Admin: 01/02/17 03:18 Dose: 1,000 mg Aspirin (Halfprin) 81 mg PO DAILY [facility] Last Admin: 01/02/17 07:28 Dose: 81 mg Clonazepam (Klonopin) 0.5 mg PO BEDTIME [facility] Last Admin: 01/01/17 20:14 Dose: 0.5 mg Diltiazem HCl (Cardizem Cd) 120 mg PO DAILY [facility] Last Admin: 01/02/17 07:28 Dose: 120 mg Heparin Sodium (Porcine) (Heparin Lock Flush 100 Units/Ml) 500 units IVPUSH Q30D [facility] Sodium Chloride (Normal Saline) 1,000 mls @ 125 mls/hr IV ASDIRECTED [facility] Last Admin: 12/31/16 01:16 Dose: 125 mls/hr Ibuprofen (Motrin) 600 mg PO TID PRN PRN Reason: Pain/Fever Last Admin: 01/01/17 20:12 Dose: 600 mg Levothyroxine Sodium (Levothyroxine) 125 mcg PO ACBREAKFAST [facility] Last Admin: 01/02/17 06:28 Dose: 125 mcg Lisinopril (Prinivil) 5 mg PO DAILY [facility] Last Admin: 01/02/17 07:28 Dose: 5 mg Melatonin (Melatonin) 6 mg PO BEDTIME [facility] Last Admin: 01/01/17 20:14 Dose: 6 mg Multivitamins/Minerals (Thera M Plus) 1 tab PO DAILY [facility] Last Admin: 01/02/17 07:28 Dose: 1 tab Sodium Chloride (Saline Flush) 10 ml FLUSH ASDIRECTED PRN PRN Reason: Keep Vein Open Last Admin: 01/02/17 07:36 Dose: 10 ml Warfarin Sodium (Coumadin) 5 mg PO [email or web address] [facility] Last Admin: 01/01/17 20:14 Dose: 5 mg Warfarin Sodium (Coumadin) 2.5 mg PO [email or web address] [facility] Discontinued Medications Sodium Chloride (Normal Saline) 1,000 mls @ 999 mls/hr IV ONETIME ONE Stop: 12/30/16 12:15 Last Admin: 12/30/16 11:05 Dose: 999 mls/hr Ketorolac Tromethamine (Toradol) 15 mg IVPUSH ONETIME ONE Stop: 12/30/16 11:02 Last Admin: 12/30/16 11:10 Dose: 15 mg Warfarin Sodium (Coumadin) 2.5 mg PO [email or web address] [facility] Last Admin: 12/30/16 21:41 Dose: 2.5 mg - Exam General: Reports: Alert, Oriented, Cooperative, No Acute Distress HEENT: Reports: Pupils Equal, Pupils Reactive, Mucous Membr. Moist/[place] Neck: Reports: Supple, Trachea Midline, No Thyromegaly. Denies: Lymphadenopathy Lungs: Reports: Clear to Auscultation, Normal Respiratory Effort Cardiovascular: Reports: Regular Rate, Regular Rhythm, No Murmurs GI/Abdominal Exam: Normal Bowel Sounds, Soft, Non-Tender, No Organomegaly, No Distention, No Mass Extremities: Non-Tender, No Pedal Edema, Normal Capillary Refill, Other (post- op shoe on the left foot) Skin: Reports: Warm, Dry, Intact *Q Meaningful Use (DIS) - VTE *Q VTE Criteria *Q: - Stroke *Q Stroke Criteria *Q: - AMI *Q AMI Criteria *Q:
[2017-01-02 10:08] VITALS: BP 129/59
[2017-01-02] MEDS: Ibuprofen 200 MG Tab PO PRN (10:13)
[2017-01-02] MEDS ORDERED: Warfarin 2.5 MG Tab PO SCH (20:00)
== END 2017-01-02 13:25 | disposition home health service (06) | DRG 312 ==
LOC: VM.ED 10:36 → VM.MS 14:02
PROVIDERS: ADMIT Family Medicine; ATTEND Family Medicine
DX: R55 Syncope and collapse (principal); I47.1 Supraventricular tachycardia; S92.902A Unspecified fracture of left foot, initial encounter for closed fracture; C85.90 Non-Hodgkin lymphoma, unspecified, unspecified site; S22.019A Unspecified fracture of first thoracic vertebra, initial encounter for closed fracture; I48.0 Paroxysmal atrial fibrillation; Z79.01 Long term (current) use of anticoagulants; Z85.07 Personal history of malignant neoplasm of pancreas; E86.0 Dehydration; W19.XXXA Unspecified fall, initial encounter; Z91.81 History of falling; I10 Essential (primary) hypertension; E03.9 Hypothyroidism, unspecified; H54.7 Unspecified visual loss; Z88.6 Allergy status to analgesic agent; Z88.8 Allergy status to other drugs, medicaments and biological substances; Z79.82 Long term (current) use of aspirin; Z79.899 Other long term (current) drug therapy; S92.332A Displaced fracture of third metatarsal bone, left foot, initial encounter for closed fracture; S92.342A Displaced fracture of fourth metatarsal bone, left foot, initial encounter for closed fracture; S92.352A Displaced fracture of fifth metatarsal bone, left foot, initial encounter for closed fracture; D64.9 Anemia, unspecified
CPT/HCPCS: 36415; 70450; 71010; 72125; 73620; 80053; 81001; 82550; 82553; 84484; 85025; 85610; 93005; 96361; 96374; 99285; J1885; J7030; 80048; 83605; 86140; 97116-GP; 97161-GP; 97165-GO; 97530-GP; A9270-GY; J7050

== ENCOUNTER 2017-09-29 09:21 | Emergency (ER) | payer MEDICARE, OTHER ==
--- NOTE | 2017-09-29 09:32 | EDM.PDOC ---
ED HPI GENERAL MEDICAL PROBLEM - General Chief Complaint: General Stated Complaint: SORE THROAT,COUGH Time Seen by Provider: 09/29/17 09:22 Source of Information: Reports: Patient, Family, RN, RN Notes Reviewed History Limitations: Reports: No Limitations - History of Present Illness INITIAL COMMENTS - FREE TEXT/NARRATIVE: Patient presents to the ED at [facility] with URI symptoms. Patient complains of a sore throat and dry non-productive cough that started 2 days ago. She denies any eye or ear symptoms. Cough is harsh. No chest pain. Patient denies any N/V/D. She is trying to stay well hydrated with good PO fluid intake. No close family members or contacts with similar symptoms. Onset Date: 09/27/17 - Related Data Allergies Allergy/AdvReac Type Severity Reaction Status Date / Time morphine Allergy Redness Verified 12/30/16 15:13 celecoxib [From Celebrex] AdvReac Headache Verified 01/02/17 09:36 marijuana AdvReac Confusion Verified 01/02/17 09:36 metoprolol AdvReac Dizziness Verified 01/02/17 09:36 naproxen [From Naprosyn] AdvReac Headache Verified 01/02/17 09:36 Home Meds: Home Meds Acetaminophen [Acetaminophen Extra Strength] 1,000 mg PO Q8HR PRN 11/30/13 [ History] Aspirin [Low Dose Aspirin EC] 81 mg PO DAILY 12/30/16 [History] Diltiazem [Cardizem CD] 120 mg PO DAILY 12/30/16 [History] Heparin Sodium,Porcine/PF [Heparin IV Flush 100 Units/ml] 500 units IV ASDIRECTED 12/30/16 [History] Levothyroxine 125 mcg PO ACBREAKFAST 12/30/16 [History] Lisinopril [Prinivil] 5 mg PO DAILY 12/30/16 [History] Multivitamin [Daily Multiple Vitamin] 1 tab PO DAILY 12/30/16 [History] Triamcinolone Acetonide [Triamcinolone Acetonide 0.1% Crm] 1 applic TOP BID PRN 12/30/16 [History] Warfarin [Coumadin] 2.5 mg PO ASDIRECTED 12/30/16 [History] Warfarin [Coumadin] 5 mg PO ASDIRECTED 12/30/16 [History] ClonazePAM [KlonoPIN] 0.5 mg PO BEDTIME tablet 01/02/17 [Rx] Azithromycin [Zithromax] 250 mg PO DAILY #1 pkg 09/29/17 [Rx] predniSONE [Prednisone] 1 tab PO BID 5 Days #10 tablet 09/29/17 [Rx] Past Medical History HEENT History: Reports: Impaired Vision Cardiovascular History: Reports: Afib, Hypertension, Other (See Below) Other Cardiovascular History: Takes Cardizem and Coumadin Respiratory History: Reports: None Gastrointestinal History: Reports: Bowel Obstruction, Pancreatitis Genitourinary History: Reports: None DEBURRER History: Reports: None Other OB/BYN History: Hysterectomy Musculoskeletal History: Reports: Other (See Below) Other Musculoskeletal History: Restless legs; muscle cramps. 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 Social & Family History - Family History Family Medical History: Noncontributory - Caffeine Use Caffeine Use: Reports: Coffee ED ROS GENERAL - Review of Systems Review Of Systems: See Below Constitutional: Denies: Fever, Chills, Weakness HEENT: Reports: Throat Pain. Denies: Ear Pain, Eye Discharge, Eye Pain Respiratory: Reports: Wheezing, Pleuritic Chest Pain, Cough. Denies: Shortness of Breath, Sputum Cardiovascular: Denies: Chest Pain, Palpitations GI/Abdominal: Denies: Abdominal Pain, Nausea, Vomiting Skin: Reports: No Symptoms Neurological: Reports: No Symptoms ED EXAM, GENERAL - Physical Exam Exam: See Below Exam Limited By: No Limitations General Appearance: Alert, No Apparent Distress Eye Exam: Bilateral Eye: Normal Inspection Ears: Normal External Exam, Normal Canal, Normal TMs Ear Exam: Bilateral Ear: TM normal Nose: Clear Rhinorrhea Throat/Mouth: Normal Inspection, Normal Oropharynx, No Airway Compromise Neck: Supple Respiratory/Chest: No Respiratory Distress, Lungs Clear, Normal Breath Sounds Cardiovascular: Normal Peripheral Pulses, Regular Rate, Rhythm Peripheral Pulses: 2+: Radial (L), Radial (R) GI/Abdominal: Normal Bowel Sounds, Soft, Non-Tender Neurological: Alert, Oriented Skin Exam: Warm, Dry, Intact, Normal Color Departure - Departure Time of Disposition: 09:30 Disposition: Home, Self-Care 01 Condition: Good Clinical Impression: Acute bacterial bronchitis, Dry cough, Wheezing - Discharge Information Prescriptions: Azithromycin [Zithromax] 250 mg PO DAILY #1 pkg predniSONE [Prednisone] 1 tab PO BID 5 Days #10 tablet Instructions: Acute Bronchitis, Adult Referrals: Jigna Helm PA-C [Ordering Only Provider] - Forms: ED Department Discharge Additional Instructions: 1. Stay well hydrated and rest 2. Take medication for the full coarse, even if you are feeling better 3. Use OTC cough syrup 4. May alternate Tylenol or Advil as needed 5. See your Primary as symptoms warrant 6. Call us with any questions or concerns - Problem List Review Problem List Initiated/Reviewed/Updated: Yes
[2017-09-29 09:35] VITALS: BP 183/88
== END 2017-09-29 09:40 | disposition home or self-care (01) ==
LOC: VM.ED 09:21
DX: J20.8 Acute bronchitis due to other specified organisms (principal); I10 Essential (primary) hypertension; Z88.5 Allergy status to narcotic agent; Z88.8 Allergy status to other drugs, medicaments and biological substances; Z79.82 Long term (current) use of aspirin
CPT/HCPCS: 99283

== ENCOUNTER 2018-08-20 09:43 | Emergency (ER) | payer MEDICARE, OTHER ==
--- NOTE | 2018-08-20 11:07 | CR ---
[id number] RAD/RAD Chest PA And Lateral EXAM: RAD Chest PA And Lateral INDICATION: SYNCOPE, BRADYCARDIA. COMPARISON: December 30, 2016. DISCUSSION: Left chest wall cardiac conduction device. Cardiomediastinal silhouette is normal in size and contour. No infiltrate, effusion, pneumothorax, or edema. Pulmonary hyperinflation. IMPRESSION: No acute cardiopulmonary abnormality. Misael Lambert DO 08/20/18 1106 Thank you for allowing us to participate in the care of your patient.
[2018-08-20 11:18] LABS: ANION GAP 14.6 mmol/L (10-20); CHLORIDE,CL 100 mmol/L (98-107); SODIUM,NA 138 mmol/L (136-145)
[2018-08-20 11:59] VITALS: BP 192/89
--- NOTE | 2018-08-20 13:02 | EDM.PDOC ---
ED HPI GENERAL MEDICAL PROBLEM - General Chief Complaint: Syncope Stated Complaint: PASSED OUT Time Seen by Provider: 08/20/18 11:02 Source of Information: Reports: Patient History Limitations: Reports: No Limitations - History of Present Illness INITIAL COMMENTS - FREE TEXT/NARRATIVE: Pt. presents to ER following a syncopal episode at home. She states that she has just finished having a bowel movement when the episode happened. She states that she was initially lightheaded but states that the symptoms resolved prior to arrival to ER. Denies any fever or chills. She states that she thinks she has a viral URI and has had a cough for several days. She states that it is non-productive. No sore throat. Denies sinus congestion. Denies any chest pain or shortness of breath. She states that she is no longer lightheaded and denies feeling pre- syncopal. Pt. sustained a 4 cm skin tear to L elbow area in the fall. Onset: Today Onset Date: 08/20/18 Location: Reports: Generalized Treatments [employer]: Reports: Other (see below) Other Treatments [employer]GER: bandaid applied to skin tear to left elbow Left Knee Pain Score (Numeric/FACES): 3 - Related Data Allergies Allergy/AdvReac Type Severity Reaction Status Date / Time morphine Allergy Redness Verified 09/29/17 09:30 celecoxib [From Celebrex] AdvReac Headache Verified 09/29/17 09:30 marijuana AdvReac Confusion Verified 09/29/17 09:30 metoprolol AdvReac Dizziness Verified 09/29/17 09:30 naproxen [From Naprosyn] AdvReac Headache Verified 09/29/17 09:30 Home Meds: Home Meds Aspirin [Low Dose Aspirin EC] 81 mg PO DAILY 12/30/16 [History] Heparin Sodium,Porcine/PF [Heparin IV Flush 100 Units/ml] 500 units IV ASDIRECTED 12/30/16 [History] Levothyroxine 125 mcg PO ACBREAKFAST 12/30/16 [History] Lisinopril [Prinivil] 5 mg PO DAILY 12/30/16 [History] Multivitamin [Daily Multiple Vitamin] 1 tab PO DAILY 12/30/16 [History] Warfarin [Coumadin] 2.5 mg PO ASDIRECTED 12/30/16 [History] Warfarin [Coumadin] 5 mg PO ASDIRECTED 12/30/16 [History] Midodrine 5 mg PO TID 08/20/18 [History] Past Medical History HEENT History: Reports: Impaired Vision Cardiovascular History: Reports: Afib, Hypertension, Syncope, Other (See Below) Other Cardiovascular History: Takes Cardizem and Coumadin Respiratory History: Reports: None Gastrointestinal History: Reports: Bowel Obstruction, Pancreatitis Genitourinary History: Reports: None LINING LAYER History: Reports: None Other LINING LAYER History: Hysterectomy Musculoskeletal History: Reports: Other (See Below) Other Musculoskeletal History: Restless legs; muscle cramps. 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 Social & Family History - Family History Family Medical History: Noncontributory - Tobacco Use Smoking Status *Q: Never Smoker Second Hand Smoke Exposure: No - Caffeine Use Caffeine Use: Reports: None - Recreational Drug Use Recreational Drug Use: No ED ROS GENERAL - Review of Systems Review Of Systems: See Below Constitutional: Reports: No Symptoms HEENT: Reports: No Symptoms Respiratory: Reports: No Symptoms Cardiovascular: Reports: Syncope Endocrine: Reports: No Symptoms GI/Abdominal: Reports: No Symptoms : Reports: No Symptoms Musculoskeletal: Reports: Other (skin tear L elbow) Skin: Reports: No Symptoms Neurological: Reports: No Symptoms, Syncope. Denies: Confusion, Dizziness, Paresthesia, Trouble Speaking, Difficulty Walking, Weakness, Change in Speech, Gait Disturbance Psychiatric: Reports: No Symptoms Hematologic/Lymphatic: Reports: No Symptoms Immunologic: Reports: No Symptoms ED EXAM, GENERAL - Physical Exam Exam: See Below Exam Limited By: No Limitations General Appearance: Alert, WD/WN, No Apparent Distress Nose: Normal Inspection, Normal Mucosa, No Blood Throat/Mouth: Normal Inspection, Normal Lips, Normal Teeth, Normal Gums, Normal Oropharynx, Normal Voice, No Airway Compromise Head: Atraumatic, Normocephalic Neck: Normal Inspection, Supple, Non-Tender, Full Range of Motion Respiratory/Chest: No Respiratory Distress, Lungs Clear, Normal Breath Sounds, No Accessory Muscle Use, Chest Non-Tender Cardiovascular: Normal Peripheral Pulses, No Edema, No Gallop, No Rub, Irregularly Irregular GI/Abdominal: Normal Bowel Sounds, Soft, Non-Tender, No Organomegaly, No Distention, No Abnormal Bruit (Female) Exam: Deferred Rectal (Female) Exam: Deferred Back Exam: Normal Inspection, Full Range of Motion Extremities: Normal Inspection, Normal Range of Motion, Non-Tender, No Pedal Edema, Normal Capillary Refill Neurological: Alert, Oriented, CN II-XII Intact, Normal Cognition, Normal Gait, Normal Reflexes, No Motor/Sensory Deficits Psychiatric: Normal Affect, Normal Mood Skin Exam: Warm, Dry, Intact, Normal Color, No Rash Lymphatic: No Adenopathy ED GENERAL MEDICAL PROCEDURES - Laceration/Wound Repair Left Elbow Lac/wound length in cm: 4 Appearance: Superficial Distal NVT: Neuro & Vascular Intact, No Tendon Injury Skin Prep: Chlorhexidine (Hibiciens), Saline Exploration/Debridement/Repair: Wound Explored, In a Bloodless Field Closed with: Dermabond Course - Vital Signs Last Recorded V/S: Last Vital Signs Temp 36.3 C 08/20/18 11:37 Pulse 69 08/20/18 11:37 Resp 16 08/20/18 11:37 BP 192/89 H 08/20/18 11:37 Pulse Ox 96 08/20/18 11:37 - Orders/Labs/Meds Orders: Active Orders 24 hr Category Date Time Status EKG Documentation Completion [RC] STAT Care 08/20/18 10:24 Active Labs: Laboratory Tests 08/20/18 08/20/18 08/20/18 Range/Units 10:45 10:45 10:45 WBC 4.6 (4.0-10.0) x10^3/uL RBC 4.34 (4.00-5.50) x10^6/uL Hgb 13.4 D (12.0-16.0) g/dL Hct 39.3 (33.0-47.0) % MCV 90.6 (78.0-93.0) fL MCH 30.9 (26.0-32.0) pg MCHC 34.1 (32.0-36.0) g/dL RDW Coeff of Luz 12.8 (10.0-15.0) % Plt Count 232 (130-400) x10^3/uL Neut % (Auto) 79.8 (50.0-80.0) % Lymph % (Auto) 10.5 L (25.0-50.0) % Drew % (Auto) 8.4 (2.0-11.0) % Eos % (Auto) 0.9 (0.0-4.0) % Baso % (Auto) 0.4 (0.2-1.2) % PT 21.7 H (10.0-12.8) SEC INR 1.9 L (2.0-3.5) Sodium 138 (136-145) mmol/L Potassium 3.6 (3.5-5.1) mmol/L Chloride 100 (98-107) mmol/L Carbon Dioxide 27 (21-32) mmol/L Anion Gap 14.6 (10-20) mmol/L BUN 17 (7-18) mg/dL Creatinine 0.9 (0.55-1.02) mg/dL Est Cr Clr Drug Dosing 36.00 mL/min Estimated GFR (MDRD) 60 Glucose 115 H (74-106) mg/dL Calcium 9.4 (8.5-10.1) mg/dL Corrected Calcium 9.16 (8.5-10.1) mg/dL Phosphorus 3.3 (2.6-4.7) mg/dL Magnesium 1.9 (1.8-2.4) mg/dL Total Bilirubin 0.6 (0.2-1.0) mg/dL AST 31 (15-37) U/L ALT 34 (14-59) U/L Alkaline Phosphatase 92 (46-116) U/L Troponin I < 0.017 (<=0.056) ng/mL C-Reactive Protein < 0.2 (<=0.9) mg/dL NT-Pro-B Natriuret Pep 2356 H (<=450) pg/mL Total Protein 8.1 (6.4-8.2) g/dL Albumin 4.3 (3.4-5.0) g/dL Globulin 3.8 Albumin/Globulin Ratio 1.13 Departure - Departure Time of Disposition: 13:06 Disposition: Home, Self-Care 01 Clinical Impression: Syncope Qualifiers: Syncope type: unspecified Qualified Code(s): R55 - Syncope and collapse - Discharge Information Instructions: Syncope, [id number] Referrals: Jigna Helm PA-C [Primary Care Provider] - Forms: ED Department Discharge Additional Instructions: Continue with your current medications. Recheck in clinic in 10-14 days Return to ER if you have any chest pain, shortness of breath, or if you are passing out. - My Orders Last 24 Hours: My Active Orders 08/20/18 10:24 EKG Documentation Completion [RC] STAT - Assessment/Plan Last 24 Hours: My Active Orders 08/20/18 10:24 EKG Documentation Completion [RC] STAT Plan: Continue with your current medications. Recheck in clinic in 10-14 days Return to ER if you have any chest pain, shortness of breath, or if you are passing out.
== END 2018-08-20 12:54 | disposition home or self-care (01) ==
LOC: VM.ED 09:43
DX: R55 Syncope and collapse (principal); S51.012A Laceration without foreign body of left elbow, initial encounter; I48.91 Unspecified atrial fibrillation; I10 Essential (primary) hypertension; E03.9 Hypothyroidism, unspecified; Z88.2 Allergy status to sulfonamides; Z79.01 Long term (current) use of anticoagulants; Z88.8 Allergy status to other drugs, medicaments and biological substances; Z88.5 Allergy status to narcotic agent; W19.XXXA Unspecified fall, initial encounter
CPT/HCPCS: 12002; 36415; 71046; 80053; 83735; 83880; 84100; 84484; 85025; 85610; 86140; 93005; 99284-25; 99284-GF

== ENCOUNTER 2018-10-08 08:43 | Emergency (ER) | payer MEDICARE, OTHER ==
[2018-10-08] MEDS ORDERED: Sodium Chloride 0.9% 10 ML Syringe FLUSH PRN (08:50)
[2018-10-08] MEDS ORDERED: Enalaprilat 1.25 MG/ML SDV IVPUSH ONE (08:52)
[2018-10-08 09:39] LABS: CHLORIDE,CL 106 mmol/L (98-107); SODIUM,NA 144 mmol/L (136-145)
--- NOTE | 2018-10-08 10:12 | EDM.PDOC ---
ED HPI GENERAL MEDICAL PROBLEM - General Chief Complaint: General Stated Complaint: DIZZY NOT FELLING WELL Time Seen by Provider: 10/08/18 08:50 Source of Information: Reports: Patient History Limitations: Reports: No Limitations - History of Present Illness INITIAL COMMENTS - FREE TEXT/NARRATIVE: Patient comes in with reports of dizziness. No syncopal episodes. She denies fever, chills, recent illness, has no headache, chest pain or SOB. She denies blood in urine or stools. Does walk daily for exercise and has been walking outside in the heat. States she drinks 6-7 8-10 oz glasses of water daily, but over the last few has not done so. Dizziness no work with position changes. History includes atrial fibrillation, pacemaker. Does take coumadin Onset: Today, Sudden Duration: Intermittent Location: Reports: Generalized - Related Data Allergies Allergy/AdvReac Type Severity Reaction Status Date / Time morphine Allergy Redness Verified 10/08/18 08:54 celecoxib [From Celebrex] AdvReac Headache Verified 10/08/18 08:54 marijuana AdvReac Confusion Verified 10/08/18 08:54 metoprolol AdvReac Dizziness Verified 10/08/18 08:54 naproxen [From Naprosyn] AdvReac Headache Verified 10/08/18 08:54 Home Meds: Home Meds Aspirin [Low Dose Aspirin EC] 81 mg PO DAILY 12/30/16 [History] Heparin Sodium,Porcine/PF [Heparin IV Flush 100 Units/ml] 500 units IV ASDIRECTED 12/30/16 [History] Levothyroxine 125 mcg PO ACBREAKFAST 12/30/16 [History] Lisinopril [Prinivil] 5 mg PO DAILY 12/30/16 [History] Multivitamin [Daily Multiple Vitamin] 1 tab PO DAILY 12/30/16 [History] Warfarin [Coumadin] 2.5 mg PO ASDIRECTED 12/30/16 [History] Warfarin [Coumadin] 5 mg PO ASDIRECTED 12/30/16 [History] Midodrine 5 mg PO TID 08/20/18 [History] Past Medical History HEENT History: Reports: Impaired Vision Cardiovascular History: Reports: Afib, Hypertension, Syncope, Other (See Below) Other Cardiovascular History: Takes Cardizem and Coumadin Respiratory History: Reports: None Gastrointestinal History: Reports: Bowel Obstruction, Pancreatitis Genitourinary History: Reports: None PARLIAMENTARY COUNSEL History: Reports: None Other PARLIAMENTARY COUNSEL History: Hysterectomy Musculoskeletal History: Reports: Other (See Below) Other Musculoskeletal History: Restless legs; muscle cramps. 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 Social & Family History - Family History Family Medical History: Noncontributory - Tobacco Use Smoking Status *Q: Unknown Ever Smoked - Caffeine Use Caffeine Use: Reports: None ED ROS GENERAL - Review of Systems Review Of Systems: See Below Constitutional: Reports: No Symptoms HEENT: Reports: No Symptoms Respiratory: Reports: No Symptoms Cardiovascular: Reports: No Symptoms Endocrine: Reports: No Symptoms GI/Abdominal: Reports: No Symptoms : Reports: No Symptoms Musculoskeletal: Reports: No Symptoms Skin: Reports: No Symptoms Neurological: Reports: Dizziness Psychiatric: Reports: No Symptoms Hematologic/Lymphatic: Reports: No Symptoms ED EXAM, GENERAL - Physical Exam Exam: See Below Exam Limited By: No Limitations General Appearance: Alert, WD/WN, No Apparent Distress Eye Exam: Bilateral Eye: EOMI, Normal Inspection, PERRL Ears: Normal TMs Nose: Normal Inspection, Normal Mucosa, No Blood Throat/Mouth: Normal Inspection, Normal Lips, Normal Teeth, Normal Gums, Normal Oropharynx, Normal Voice, No Airway Compromise Head: Atraumatic, Normocephalic Neck: Normal Inspection, Supple, Non-Tender, Full Range of Motion Respiratory/Chest: No Respiratory Distress, Lungs Clear, Normal Breath Sounds, No Accessory Muscle Use, Chest Non-Tender Cardiovascular: Normal Peripheral Pulses, Regular Rate, Rhythm, No Edema, No Gallop, No JVD, No Murmur, No Rub Peripheral Pulses: 2+: Posterior Tibial (L), Posterior Tibial (R), Dorsalis Pedis (L), Dorsalis Pedis (R) GI/Abdominal: Normal Bowel Sounds, Soft, Non-Tender, No Organomegaly, No Distention, No Abnormal Bruit, No Mass Back Exam: Normal Inspection, Full Range of Motion, NT Extremities: Normal Inspection, Normal Range of Motion, Non-Tender, Normal Capillary Refill, No Pedal Edema Neurological: Alert, Oriented, CN II-XII Intact, Normal Cognition, Normal Gait, Normal Reflexes, No Motor/Sensory Deficits Psychiatric: Normal Affect, Normal Mood Skin Exam: Warm Lymphatic: No Adenopathy Course - Vital Signs Last Recorded V/S: Last Vital Signs Temp 36.6 C 10/08/18 08:43 Pulse 82 10/08/18 08:43 Resp 16 10/08/18 08:43 BP 180/92 H 10/08/18 09:11 Pulse Ox 97 10/08/18 08:43 - Orders/Labs/Meds Orders: Active Orders 24 hr Category Date Time Status EKG 12 Lead [EKG Documentation Completion] [RC] STAT Care 10/08/18 08:51 Ordered Chest 1V Frontal [CR] Stat Exams 10/08/18 08:51 Ordered UA W/MICROSCOPIC [URIN] Stat Lab 10/08/18 08:50 Ordered Sodium Chloride 0.9% [Saline Flush] Med 10/08/18 08:50 Ordered 10 ml FLUSH ASDIRECTED PRN Saline Lock Insert [OM.PC] Routine Oth 10/08/18 08:50 Ordered Medication Orders Sodium Chloride (Saline Flush) 10 ml FLUSH ASDIRECTED PRN PRN Reason: Keep Vein Open Labs: Laboratory Tests 10/08/18 10/08/18 10/08/18 Range/Units 09:00 09:00 09:00 WBC 5.0 (4.0-10.0) x10^3/uL RBC 4.42 (4.00-5.50) x10^6/uL Hgb 13.6 (12.0-16.0) g/dL Hct 39.9 (33.0-47.0) % MCV 90.3 (78.0-93.0) fL MCH 30.8 (26.0-32.0) pg MCHC 34.1 (32.0-36.0) g/dL RDW Coeff of Luz 13.1 (10.0-15.0) % Plt Count 263 (130-400) x10^3/uL Neut % (Auto) 67.6 (50.0-80.0) % Lymph % (Auto) 20.9 L (25.0-50.0) % Boundary % (Auto) 9.3 (2.0-11.0) % Eos % (Auto) 1.8 (0.0-4.0) % Baso % (Auto) 0.4 (0.2-1.2) % PT 29.6 H D (10.0-12.8) SEC INR 2.6 (2.0-3.5) Sodium 144 (136-145) mmol/L Potassium 4.0 (3.5-5.1) mmol/L Chloride 106 (98-107) mmol/L Carbon Dioxide 31 (21-32) mmol/L Anion Gap 11.0 (10-20) mmol/L BUN 16 (7-18) mg/dL Creatinine 0.9 (0.55-1.02) mg/dL Est Cr Clr Drug Dosing TNP Estimated GFR (MDRD) 60 Glucose 97 (74-106) mg/dL Calcium 9.5 (8.5-10.1) mg/dL Corrected Calcium 9.66 (8.5-10.1) mg/dL Total Bilirubin 0.7 (0.2-1.0) mg/dL AST 25 (15-37) U/L ALT 28 (14-59) U/L Alkaline Phosphatase 85 (46-116) U/L Troponin I < 0.017 (<=0.056) ng/mL NT-Pro-B Natriuret Pep 1952 H (<=450) pg/mL Total Protein 7.3 (6.4-8.2) g/dL Albumin 3.8 (3.4-5.0) g/dL Globulin 3.5 Albumin/Globulin Ratio 1.09 TSH, Ultra Sensitive (0.358-3.74) uIU/mL 10/08/18 Range/Units 09:00 WBC (4.0-10.0) x10^3/uL RBC (4.00-5.50) x10^6/uL Hgb (12.0-16.0) g/dL Hct (33.0-47.0) % MCV (78.0-93.0) fL MCH (26.0-32.0) pg MCHC (32.0-36.0) g/dL RDW Coeff of Luz (10.0-15.0) % Plt Count (130-400) x10^3/uL Neut % (Auto) (50.0-80.0) % Lymph % (Auto) (25.0-50.0) % Boundary % (Auto) (2.0-11.0) % Eos % (Auto) (0.0-4.0) % Baso % (Auto) (0.2-1.2) % PT (10.0-12.8) SEC INR (2.0-3.5) Sodium (136-145) mmol/L Potassium (3.5-5.1) mmol/L Chloride (98-107) mmol/L Carbon Dioxide (21-32) mmol/L Anion Gap (10-20) mmol/L BUN (7-18) mg/dL Creatinine (0.55-1.02) mg/dL Est Cr Clr Drug Dosing Estimated GFR (MDRD) Glucose (74-106) mg/dL Calcium (8.5-10.1) mg/dL Corrected Calcium (8.5-10.1) mg/dL Total Bilirubin (0.2-1.0) mg/dL AST (15-37) U/L ALT (14-59) U/L Alkaline Phosphatase (46-116) U/L Troponin I (<=0.056) ng/mL NT-Pro-B Natriuret Pep (<=450) pg/mL Total Protein (6.4-8.2) g/dL Albumin (3.4-5.0) g/dL Globulin Albumin/Globulin Ratio TSH, Ultra Sensitive 0.289 L (0.358-3.74) uIU/mL Meds: Medications Generic Name Dose Route Start Last Admin Trade Name Freq PRN Reason Stop Dose Admin Sodium Chloride 10 ml 10/08/18 08:50 Saline Flush FLUSH ASDIRECTED PRN Keep Vein Open Discontinued Medications Generic Name Dose Route Start Last Admin Trade Name Freq PRN Reason Stop Dose Admin Enalaprilat 1.25 mg 10/08/18 08:52 10/08/18 09:11 Vasotec Iv IVPUSH 10/08/18 08:53 1.25 mg ONETIME ONE Administration - Re-Assessments/Exams Free Text/Narrative Re-Assessment/Exam: 10/08/18 10:16 Dizziness improved after vasotech administration and lowering of BP Departure - Departure Time of Disposition: 10:16 Disposition: Home, Self-Care 01 Condition: Good Clinical Impression: Hypertension - Discharge Information *PRESCRIPTION DRUG MONITORING PROGRAM REVIEWED*: Not Applicable *COPY OF PRESCRIPTION DRUG MONITORING REPORT IN PATIENT ALLYSSA: Not Applicable Instructions: Managing Your Hypertension, Hypertension Additional Instructions: Plan 1. Please remember to stay well hydrated 2. Schedule a visit with your primary provider to add or change medications for your high blood pressure 3. You could try to add a water pill to help with your elevated Pro BNP level and this will also help lower your BP 4. Please call us or return at any time if you experience further concerns of dizziness - Problem List & Annotations (1) Hypertension SNOMED Code(s): 94180240 Code(s): I10 - ESSENTIAL (PRIMARY) HYPERTENSION Status: Chronic Priority : Medium Qualifiers: Hypertension type: essential hypertension - Problem List Review Problem List Initiated/Reviewed/Updated: Yes - My Orders Last 24 Hours: My Active Orders 10/08/18 08:50 UA W/MICROSCOPIC [URIN] Stat Sodium Chloride 0.9% [Saline Flush] 10 ml FLUSH ASDIRECTED PRN Saline Lock Insert [OM.PC] Routine 10/08/18 08:51 EKG 12 Lead [EKG Documentation Completion] [RC] STAT Chest 1V Frontal [CR] Stat - Assessment/Plan Last 24 Hours: My Active Orders 10/08/18 08:50 UA W/MICROSCOPIC [URIN] Stat Sodium Chloride 0.9% [Saline Flush] 10 ml FLUSH ASDIRECTED PRN Saline Lock Insert [OM.PC] Routine 10/08/18 08:51 EKG 12 Lead [EKG Documentation Completion] [RC] STAT Chest 1V Frontal [CR] Stat Assessment:: Hypertension Plan: Plan 1. Please remember to stay well hydrated 2. Schedule a visit with your primary provider to add or change medications for your high blood pressure 3. You could try to add a water pill to help with your elevated Pro BNP level and this will also help lower your BP 4. Please call us or return at any time if you experience further concerns of dizziness
[2018-10-08] MEDS ORDERED: Sodium Chloride 0.9% 1,000 ML IV ONE (11:16)
[2018-10-08 11:28] VITALS: BP 151/79
--- NOTE | 2018-10-09 08:01 | CR ---
[id number] RAD/RAD Chest PA or AP 1V EXAM: SINGLE VIEW CHEST. INDICATION: DIZZINESS. HYPERTENSION COMPARISON: CORRELATION IS MADE WITH THE EXAM OF AUGUST 20, 2018. FINDINGS: The lungs are clear. The cardiomediastinal contour is stable. The pacemaker and chest port are seen. IMPRESSION: STABLE CHEST. Cricket Coleman MD 10/09/18 0759 Thank you for allowing us to participate in the care of your patient.
== END 2018-10-08 10:43 | disposition home or self-care (01) ==
LOC: VM.ED 08:43
DX: I10 Essential (primary) hypertension (principal); I48.91 Unspecified atrial fibrillation; E03.9 Hypothyroidism, unspecified; Z98.49 Cataract extraction status, unspecified eye; Z98.890 Other specified postprocedural states; Z88.5 Allergy status to narcotic agent; Z88.8 Allergy status to other drugs, medicaments and biological substances; Z79.82 Long term (current) use of aspirin
CPT/HCPCS: 36415; 71045; 80053; 83880; 84443; 84484; 85025; 85610; 93005; 96361; 96374; 99284-25